=== PATIENT | female | born 2000 | race Caucasian/White ===

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

== ENCOUNTER 2025-05-21 17:56 | Emergency (ER) | payer OTHER, BC ==
[~2025-05-21] VITALS: Ht 160 cm; Wt 68.0 kg
== END 2025-05-21 19:51 | disposition short-term general hospital (02) ==
LOC: ED
DX: M54.2 Cervicalgia (principal); R10.32 Left lower quadrant pain; V89.2XXA Person injured in unspecified motor-vehicle accident, traffic, initial encounter; Y93.89 Activity, other specified; Y92.488 Other paved roadways as the place of occurrence of the external cause; Y99.8 Other external cause status